=== PATIENT | female | born 1960 | race Caucasian/White ===

== ENCOUNTER 2018-04-22 05:59 | Inpatient (IN) | payer BC ==
[2018-04-22] MEDS ORDERED: ALBUMIN HUMAN 5% 250 ML INJ (07:00)
[2018-04-22] MEDS ORDERED: DEXAMETHASONE 4 MG/ML 1 ML INJ (07:00)
[2018-04-22] MEDS ORDERED: ALBUMIN HUMAN 25% 100 ML INJ (07:00)
[2018-04-22] MEDS ORDERED: ACETAMINOPHEN 1000 MG/100 ML IVPB (07:00)
[2018-04-22] MEDS ORDERED: LIDOCAINE 2% (SDV) 5 ML INJ (07:00)
[2018-04-22] MEDS ORDERED: ONDANSETRON 4 MG INJ (07:26)
[2018-04-22] MEDS ORDERED: FENTAnyl 50 MCG/ML VIAL (07:26)
[2018-04-22] MEDS ORDERED: PROPOFOL 20 ML (07:26)
[2018-04-22] MEDS ORDERED: MIDAZOLAM 1 MG/ML 2 ML INJ (07:26)
[2018-04-22] MEDS ORDERED: MIDAZOLAM 1 MG/ML 2 ML INJ IV (07:30)
[2018-04-22] MEDS ORDERED: EPHEDrine SULFATE 50 MG/5 ML SYG IV (07:30)
[2018-04-22] MEDS ORDERED: hydrALAzine 20 MG INJ IV ×2 (07:30→08:00)
[2018-04-22] MEDS ORDERED: FENTAnyl 50 MCG/ML VIAL IV ×4 (07:30→08:00)
[2018-04-22] MEDS ORDERED: LABETALOL HCL 20MG INJ IV ×2 (07:30→08:00)
[2018-04-22] MEDS ORDERED: ATROPINE 1 MG/10 ML SYRINGE IV (07:30)
[2018-04-22] MEDS ORDERED: MEPERIDINE 25 MG INJ IV ×2 (07:30→08:00)
[2018-04-22] MEDS ORDERED: DIPHENHYDRAMINE 50 MG INJ IV ×2 (07:30→08:00)
[2018-04-22] MEDS ORDERED: HYDROmorphONE 1 MG/5 ML IV SYRINGE IV ×3 (08:00)
[2018-04-22] MEDS ORDERED: HALOPERIDOL 5 MG INJ IV (08:00)
[2018-04-22] MEDS ORDERED: ONDANSETRON 4 MG INJ IV (08:00)
[2018-04-22] MEDS ORDERED: PROCHLORPERAZINE 10 MG INJ IV (08:00)
[2018-04-22] MEDS: GENTAMICIN 80 MG INJ (08:27)
[2018-04-22] MEDS: POLYMYXIN/BACITRACIN 1L IRRIG (08:27)
[2018-04-22] MEDS: BUPIVACAINE 0.25% (MPF) 30 ML INJ (08:28)
[2018-04-22] MEDS: LIDOCAINE 1%/EPI 30 ML INJ (08:28)
[2018-04-22] MEDS ORDERED: KETOROLAC 30 MG INJ (08:39)
[2018-04-22] MEDS ORDERED: GENTAMICIN 80 MG/NS (PMX) 100 ML (08:46)
[2018-04-22] MEDS ORDERED: HYDROmorphONE 2 MG/ML SYG (08:55)
[2018-04-22] MEDS ORDERED: hydrALAzine 20 MG INJ (09:02)
[2018-04-22] MEDS: MUPIROCIN 2% 15 GM CR (09:30)
[2018-04-22] MEDS ORDERED: BUPIVACAINE 0.25% (MPF) 30 ML INJ (09:56)
[2018-04-22] MEDS ORDERED: LIDOCAINE 1%/EPI 30 ML INJ (09:56)
[2018-04-22] MEDS: LEVALBUTEROL (NEB) 1.25 MG/0.5 ML AMP HHN (10:56)
[2018-04-22] MEDS: IPRATROPIUM (NEB) 0.5 MG/2.5 ML AMP HHN (10:59)
[2018-04-22] MEDS ORDERED: OXYCODONE/ACETAMINOPHEN (5/325) TAB PO (11:00)
[2018-04-22 13:05] LABS: AADO2 Arterial 21.7 mmHg (7.0-24.0); Allen Test ACCEPTAB; Arterial Base Excess -0.6 mmol/L (-3.0-3); Arterial Blood Gas Oxygen Sat 87.3 mmHG (95.0-98.0); Arterial COHb 1.5 % (0.0-3.0); Arterial Fraction of Oxyhgb 85.8 % (93.0-99.0); Arterial HCO3 27.1 mmol/L (22.0-26.0); Arterial MetHb 0.2 % (0.0-1.5); Arterial Total Hemglobin 15.3 g/dl (12.0-18.0); Arterial pCO2 56.8 mmhg (35-45); MODE ROOM AIR; Site Left Radial
[2018-04-22] MEDS: ALBUTEROL/IPRATROPIUM (NEB) 3 ML AMP HHN ×2 (14:20→20:00)
[2018-04-22] MEDS: ONDANSETRON 4 MG INJ IV (15:28)
[2018-04-22] MEDS ORDERED: ACETAMINOPHEN 325 MG TAB PO (15:30)
[2018-04-22] MEDS ORDERED: NACL 0.9% 3 ML SYG IV (15:30)
[2018-04-22 15:52] LABS: ADD MAN DIFF? NO
[2018-04-22 15:53] LABS: WHITE BLOOD COUNT 10.8 10^3/ul (4.8-10.8)
[2018-04-22 15:53] LABS: BASOPHILS % 0.1 % (0.0-2.0); EOSINOPHILS % 0.1 % (0.0-7.0); HEMATOCRIT 42.6 % (37.0-47.0); HEMOGLOBIN 14.2 g/dl (12.0-16.0); LYMPHOCYTES % 9.2 % (15.0-51.0); MEAN CORPUSCULAR HEMOGLOBIN 32.9 pg (29.0-33.0); MEAN CORPUSCULAR HGB CONC 33.3 g/dl (32.0-37.0); MEAN CORPUSCULAR VOLUME 98.8 fl (82.0-101.0); MEAN PLATELET VOLUME 9.9 fl (7.4-10.4); MONOCYTE # 0.3 10^3/ul (0.3-0.9); MONOCYTES % 3.1 % (0.0-11.0); NEUTROPHIL # 9.4 10^3/ul (1.6-7.5); NEUTROPHILS % 87.2 % (39.0-77.0); PLATELET COUNT 262 10^3/UL (140-415); RED BLOOD COUNT 4.31 10^6/ul (4.20-5.40); RED CELL DISTRIBUTION WIDTH 12.2 % (11.5-14.5)
[2018-04-22 16:12] LABS: INR 1.01; PROTIME 13.4 Sec (11.9-14.9)
[2018-04-22 16:32] LABS: PARTIAL THROMBOPLASTIN TIME 57.8 Sec (25.0-35.0)
[2018-04-22 16:35] LABS: ALBUMIN/GLOBULIN RATIO 1.22; ANION GAP 17 (8-16); BILIRUBIN,TOTAL 0.4 mg/dl (0.2-1.3)
[2018-04-22 16:42] LABS: ALANINE AMINOTRANSFERASE 222 IU/L (13-69); ALBUMIN 4.9 g/dl (3.3-4.9); ALKALINE PHOSPHATASE 74 IU/L (42-121); ASPARTATE AMINO TRANSFERASE 195 IU/L (15-46); BILIRUBIN,INDIRECT 0.4 mg/dl (0-1.1); BLOOD UREA NITROGEN 18 mg/dl (7-20); CALCIUM 11.6 mg/dl (8.4-10.2); CARBON DIOXIDE 25 mmol/L (21-31); CHLORIDE 101 mmol/L (97-110); CREATININE 0.87 mg/dl (0.44-1.00); GLUCOSE 222 mg/dl (70-220); POTASSIUM 4.4 mmol/L (3.5-5.1); SODIUM 139 mmol/L (135-144); TOTAL PROTEIN 8.9 g/dl (6.1-8.1)
[2018-04-22 16:55] LABS: B-TYPE NATRIURETIC PEPTIDE 91 PG/ML (0-125); TROPONIN-I < 0.012 ng/ml (0.000-0.120)
[2018-04-22] MEDS: METHYLPREDNISOLONE 125 MG INJ IV ×2 (17:00→20:30)
[2018-04-22] MEDS: CEFTRIAXONE 1 GM/50 ML (PMX) 50 ML IVPB (17:03)
[2018-04-22] MEDS: AZITHROMYCIN 500MG/NS (PMX) 250 ML IVPB (18:05)
[2018-04-22] MEDS: SOD CHLORIDE 0.9% 1,000 ML IV (18:05)
[2018-04-22] MEDS ORDERED: GLUCOSE GEL 15 GRAM TUBE PO ×2 (18:30)
[2018-04-22] MEDS ORDERED: DEXTROSE 50% 50 ML SYRINGE IV ×2 (18:30)
[2018-04-22] MEDS ORDERED: GLUCAGON 1 MG INJ IM (18:30)
[2018-04-22] MEDS ORDERED: GLUCOSE GEL 15 GRAM TUBE BUCCAL (18:30)
[2018-04-22] MEDS: BUDESONIDE (NEB) 0.5MG/2ML AMP HHN (20:00)
[2018-04-22] MEDS: INSULIN ASPART [NOVOLOG] 3 ML PEN SC (20:31)
[2018-04-22 23:09] LABS: TROPONIN-I < 0.012 ng/ml (0.000-0.120)
[2018-04-23] MEDS: METHYLPREDNISOLONE 125 MG INJ IV ×3 (02:03→17:12)
[2018-04-23] MEDS: ACCU-CHEK XX (02:03)
[2018-04-23 02:14] LABS: TROPONIN-I < 0.012 ng/ml (0.000-0.120)
[2018-04-23] MEDS: PANTOPRAZOLE 40 MG INJ IV (05:39)
[2018-04-23 06:21] LABS: ADD MAN DIFF? NO
[2018-04-23 06:43] LABS: BASOPHILS % 0.1 % (0.0-2.0); HEMATOCRIT 40.9 % (37.0-47.0); HEMOGLOBIN 13.7 g/dl (12.0-16.0); LYMPHOCYTES # 1.1 10^3/ul (0.8-2.9); LYMPHOCYTES % 7.6 % (15.0-51.0); MEAN CORPUSCULAR HEMOGLOBIN 32.8 pg (29.0-33.0); MEAN CORPUSCULAR HGB CONC 33.5 g/dl (32.0-37.0); MEAN CORPUSCULAR VOLUME 97.8 fl (82.0-101.0); MEAN PLATELET VOLUME 10.3 fl (7.4-10.4); MONOCYTE # 0.4 10^3/ul (0.3-0.9); MONOCYTES % 2.5 % (0.0-11.0); NEUTROPHIL # 13.5 10^3/ul (1.6-7.5); NEUTROPHILS % 89.3 % (39.0-77.0); PLATELET COUNT 255 10^3/UL (140-415); RED BLOOD COUNT 4.18 10^6/ul (4.20-5.40); RED CELL DISTRIBUTION WIDTH 11.8 % (11.5-14.5)
[2018-04-23 06:43] LABS: WHITE BLOOD COUNT 15.1 10^3/ul (4.8-10.8)
[2018-04-23 07:25] LABS: ALANINE AMINOTRANSFERASE 158 IU/L (13-69); ALBUMIN 4.1 g/dl (3.3-4.9); ALKALINE PHOSPHATASE 64 IU/L (42-121); ANION GAP 19 (8-16); ASPARTATE AMINO TRANSFERASE 96 IU/L (15-46); BILIRUBIN,INDIRECT 0.4 mg/dl (0-1.1); BILIRUBIN,TOTAL 0.4 mg/dl (0.2-1.3); BLOOD UREA NITROGEN 28 mg/dl (7-20); CALCIUM 10.1 mg/dl (8.4-10.2); CARBON DIOXIDE 23 mmol/L (21-31); CHLORIDE 98 mmol/L (97-110); CREATININE 0.93 mg/dl (0.44-1.00); GLUCOSE 277 mg/dl (70-220); MAGNESIUM 1.5 mg/dl (1.7-2.5); POTASSIUM 4.5 mmol/L (3.5-5.1); SODIUM 135 mmol/L (135-144); TOTAL PROTEIN 7.5 g/dl (6.1-8.1)
[2018-04-23 07:33] LABS: TROPONIN-I < 0.012 ng/ml (0.000-0.120)
[2018-04-23] MEDS: INSULIN ASPART [NOVOLOG] 3 ML PEN SC ×7 (08:17→22:24)
[2018-04-23 08:23] LABS: Arterial Base Excess -1.6 mmol/L (-3.0-3); Arterial Blood Gas Oxygen Sat 93.1 mmHG (95.0-98.0); Arterial COHb 1.1 % (0.0-3.0); Arterial Fraction of Oxyhgb 92.1 % (93.0-99.0); Arterial HCO3 23.5 mmol/L (22.0-26.0); Arterial MetHb 0 % (0.0-1.5); Arterial Total Hemglobin 14.7 g/dl (12.0-18.0); Arterial pCO2 41.3 mmhg (35-45); MODE NASAL CANNULA; Site Right Brachial
[2018-04-23] MEDS: BUPROPION (XL) 150 MG TAB PO (09:27)
[2018-04-23 10:38] LABS: HEMOGLOBIN A1C 7.8 % (0-5.9)
[2018-04-23] MEDS: MAGNESIUM SULFATE 2 GM/50 ML 50 ML IVPB (11:58)
[2018-04-23] MEDS: INSULIN GLARGINE [LANTus] (100 UNITS/ML) SYG SC (12:03)
[2018-04-23] MEDS: BUDESONIDE (NEB) 0.5MG/2ML AMP HHN ×2 (13:27→21:24)
[2018-04-23] MEDS: ALBUTEROL/IPRATROPIUM (NEB) 3 ML AMP HHN ×2 (13:27→21:14)
[2018-04-23] MEDS: DOXYCYCLINE 100 MG TAB PO ×2 (16:46→23:50)
[2018-04-23] MEDS: MAGNESIUM HYDROXIDE 30ML CUP PO (16:46)
[2018-04-23] MEDS ORDERED: CEFTRIAXONE 1 GM/50 ML (PMX) 50 ML IVPB (17:00)
[2018-04-23] MEDS: metFORMIN 500 MG TAB PO (17:11)
[2018-04-23] MEDS: OXYCODONE/ACETAMINOPHEN (5/325) TAB PO (19:33)
[2018-04-23] MEDS ORDERED: INSULIN GLARGINE [LANTus] (100 UNITS/ML) SYG SC (20:00)
[2018-04-24] MEDS: ACCU-CHEK XX ×2 (02:59)
[2018-04-24] MEDS: SOD CHLORIDE 0.9% 1,000 ML IV (03:28)
[2018-04-24] MEDS: OXYCODONE/ACETAMINOPHEN (5/325) TAB PO ×3 (03:47→20:45)
[2018-04-24] MEDS: BISACODYL (EC) 5 MG TAB PO ×2 (03:47→17:07)
[2018-04-24] MEDS: PANTOPRAZOLE 40 MG INJ IV (05:25)
[2018-04-24] MEDS: METHYLPREDNISOLONE 125 MG INJ IV (05:25)
[2018-04-24 06:20] LABS: ADD MAN DIFF? NO
[2018-04-24 06:28] LABS: BASOPHILS % 0.1 % (0.0-2.0); HEMATOCRIT 40.3 % (37.0-47.0); HEMOGLOBIN 13.5 g/dl (12.0-16.0); LYMPHOCYTES # 1.3 10^3/ul (0.8-2.9); LYMPHOCYTES % 8.3 % (15.0-51.0); MEAN CORPUSCULAR HEMOGLOBIN 32.8 pg (29.0-33.0); MEAN CORPUSCULAR HGB CONC 33.5 g/dl (32.0-37.0); MEAN CORPUSCULAR VOLUME 98.1 fl (82.0-101.0); MEAN PLATELET VOLUME 10.2 fl (7.4-10.4); MONOCYTE # 1.1 10^3/ul (0.3-0.9); MONOCYTES % 7.3 % (0.0-11.0); NEUTROPHILS % 83.5 % (39.0-77.0); PLATELET COUNT 251 10^3/UL (140-415); RED BLOOD COUNT 4.11 10^6/ul (4.20-5.40); RED CELL DISTRIBUTION WIDTH 11.9 % (11.5-14.5)
[2018-04-24 06:28] LABS: WHITE BLOOD COUNT 15.6 10^3/ul (4.8-10.8)
[2018-04-24 06:48] LABS: ANION GAP 14 (8-16); BLOOD UREA NITROGEN 35 mg/dl (7-20); CALCIUM 9.3 mg/dl (8.4-10.2); CARBON DIOXIDE 27 mmol/L (21-31); CHLORIDE 99 mmol/L (97-110); CREATININE 0.81 mg/dl (0.44-1.00); GLUCOSE 248 mg/dl (70-220); MAGNESIUM 2.4 mg/dl (1.7-2.5); PHOSPHORUS 3.5 mg/dl (2.5-4.9); POTASSIUM 4.9 mmol/L (3.5-5.1); SODIUM 135 mmol/L (135-144)
[2018-04-24] MEDS: metFORMIN 500 MG TAB PO ×2 (08:06→17:35)
[2018-04-24] MEDS: INSULIN ASPART [NOVOLOG] 3 ML PEN SC ×8 (08:12→22:06)
[2018-04-24] MEDS: INSULIN GLARGINE [LANTus] (100 UNITS/ML) SYG SC ×2 (08:13→22:11)
[2018-04-24] MEDS: BUPROPION (XL) 150 MG TAB PO (08:16)
[2018-04-24] MEDS: DOXYCYCLINE 100 MG TAB PO ×2 (08:16→20:45)
[2018-04-24] MEDS: ALBUTEROL/IPRATROPIUM (NEB) 3 ML AMP HHN ×2 (08:51→16:41)
[2018-04-24] MEDS: BUDESONIDE (NEB) 0.5MG/2ML AMP HHN (08:51)
[2018-04-24] MEDS: FLUTICASONE/VILANTEROL 100-25 INH (13:18)
[2018-04-24] MEDS: predniSONE 20 MG TAB PO (13:18)
[2018-04-24] MEDS: TIOTROPIUM 18 MCG CAPSULE INHA DEV INH (13:18)
[2018-04-24] MEDS: MINERAL OIL 133 ML ENEMA PR (17:03)
[2018-04-24] MEDS: DOCUSATE SODIUM 100 MG CAP PO (17:07)
[2018-04-25] MEDS: ACCU-CHEK XX ×2 (02:00)
[2018-04-25 06:12] LABS: ADD MAN DIFF? NO
[2018-04-25 06:17] LABS: BASOPHILS % 0.1 % (0.0-2.0); EOSINOPHILS % 0.1 % (0.0-7.0); HEMATOCRIT 39.3 % (37.0-47.0); HEMOGLOBIN 13.2 g/dl (12.0-16.0); LYMPHOCYTES # 2.1 10^3/ul (0.8-2.9); LYMPHOCYTES % 15.4 % (15.0-51.0); MEAN CORPUSCULAR HEMOGLOBIN 33.3 pg (29.0-33.0); MEAN CORPUSCULAR HGB CONC 33.6 g/dl (32.0-37.0); MEAN CORPUSCULAR VOLUME 99.2 fl (82.0-101.0); MONOCYTE # 1.3 10^3/ul (0.3-0.9); MONOCYTES % 9.2 % (0.0-11.0); NEUTROPHIL # 10.2 10^3/ul (1.6-7.5); NEUTROPHILS % 74.8 % (39.0-77.0); PLATELET COUNT 248 10^3/UL (140-415); RED BLOOD COUNT 3.96 10^6/ul (4.20-5.40); RED CELL DISTRIBUTION WIDTH 11.9 % (11.5-14.5)
[2018-04-25 06:17] LABS: WHITE BLOOD COUNT 13.7 10^3/ul (4.8-10.8)
[2018-04-25 07:21] LABS: ANION GAP 18 (8-16); BLOOD UREA NITROGEN 41 mg/dl (7-20); CALCIUM 9.4 mg/dl (8.4-10.2); CARBON DIOXIDE 27 mmol/L (21-31); CHLORIDE 101 mmol/L (97-110); CREATININE 0.89 mg/dl (0.44-1.00); GLUCOSE 135 mg/dl (70-220); POTASSIUM 4.6 mmol/L (3.5-5.1); SODIUM 141 mmol/L (135-144)
[2018-04-25] MEDS: metFORMIN 500 MG TAB PO ×2 (07:33→18:03)
[2018-04-25] MEDS: INSULIN ASPART [NOVOLOG] 3 ML PEN SC ×5 (07:34→21:00)
[2018-04-25] MEDS: INSULIN GLARGINE [LANTus] (100 UNITS/ML) SYG SC (07:43)
[2018-04-25] MEDS: FLUTICASONE/VILANTEROL 100-25 INH (09:03)
[2018-04-25] MEDS: BUPROPION (XL) 150 MG TAB PO (09:04)
[2018-04-25] MEDS: predniSONE 10 MG TAB PO (09:04)
[2018-04-25] MEDS: DOXYCYCLINE 100 MG TAB PO ×2 (09:04→20:55)
[2018-04-25] MEDS: TIOTROPIUM 18 MCG CAPSULE INHA DEV INH (09:04)
[2018-04-25] MEDS: ALBUTEROL/IPRATROPIUM (NEB) 3 ML AMP HHN (09:42)
[2018-04-25] MEDS ORDERED: LINAGLIPTIN 5 MG TABLET PO (10:30)
[2018-04-25] MEDS: OXYCODONE/ACETAMINOPHEN (5/325) TAB PO (11:41)
[2018-04-25] MEDS: REPAGLINIDE 1 MG TAB PO (11:49)
[2018-04-25] MEDS: ONDANSETRON 4 MG INJ IV (21:01)
[2018-04-26] MEDS: OXYCODONE/ACETAMINOPHEN (5/325) TAB PO (01:00)
[2018-04-26] MEDS: ACCU-CHEK XX ×4 (02:00→21:00)
[2018-04-26] MEDS: INSULIN ASPART [NOVOLOG] 3 ML PEN SC ×4 (07:55→21:00)
[2018-04-26] MEDS: FLUTICASONE/VILANTEROL 100-25 INH (08:29)
[2018-04-26] MEDS: TIOTROPIUM 18 MCG CAPSULE INHA DEV INH (08:29)
[2018-04-26] MEDS: DOXYCYCLINE 100 MG TAB PO ×2 (08:30→20:49)
[2018-04-26] MEDS: BUPROPION (XL) 150 MG TAB PO (08:30)
[2018-04-26] MEDS: predniSONE 20 MG TAB PO (08:30)
[2018-04-26] MEDS: metFORMIN 500 MG TAB PO (08:31)
[2018-04-26] MEDS: BUDESONIDE (NEB) 0.5MG/2ML AMP HHN ×2 (09:30→20:00)
[2018-04-26 12:54] LABS: ADD MAN DIFF? NO
[2018-04-26 12:56] LABS: WHITE BLOOD COUNT 11.6 10^3/ul (4.8-10.8)
[2018-04-26 12:57] LABS: BASOPHILS % 0.1 % (0.0-2.0); EOSINOPHILS # 0.1 10^3/ul (0.0-0.5); EOSINOPHILS % 0.4 % (0.0-7.0); HEMOGLOBIN 14.2 g/dl (12.0-16.0); LYMPHOCYTES # 1.4 10^3/ul (0.8-2.9); LYMPHOCYTES % 12.2 % (15.0-51.0); MEAN CORPUSCULAR HEMOGLOBIN 32.6 pg (29.0-33.0); MEAN CORPUSCULAR VOLUME 98.9 fl (82.0-101.0); MEAN PLATELET VOLUME 9.9 fl (7.4-10.4); MONOCYTE # 0.9 10^3/ul (0.3-0.9); MONOCYTES % 7.7 % (0.0-11.0); NEUTROPHIL # 9.2 10^3/ul (1.6-7.5); NEUTROPHILS % 79.2 % (39.0-77.0); PLATELET COUNT 247 10^3/UL (140-415); RED BLOOD COUNT 4.35 10^6/ul (4.20-5.40); RED CELL DISTRIBUTION WIDTH 11.9 % (11.5-14.5)
[2018-04-26] MEDS: REPAGLINIDE 1 MG TAB PO ×2 (12:57→17:52)
[2018-04-26 13:19] LABS: CHOLESTEROL 181 mg/dl (100-200)
[2018-04-26 13:19] LABS: ANION GAP 17 (8-16); BLOOD UREA NITROGEN 29 mg/dl (7-20); CALCIUM 9.5 mg/dl (8.4-10.2); CARBON DIOXIDE 25 mmol/L (21-31); CHLORIDE 103 mmol/L (97-110); CHOL/HDL RATIO 3.2 RATIO; CREATININE 0.77 mg/dl (0.44-1.00); GLUCOSE 156 mg/dl (70-220); HDL CHOLESTEROL 55 mg/dl (37-92); LDL CHOLESTEROL,CALCULATED 72 mg/dl; MAGNESIUM 1.7 mg/dl (1.7-2.5); PHOSPHORUS 3.8 mg/dl (2.5-4.9); POTASSIUM 4.3 mmol/L (3.5-5.1); SODIUM 141 mmol/L (135-144); TRIGLYCERIDES 272 mg/dl (0-149)
[2018-04-26] MEDS: ALBUTEROL/IPRATROPIUM (NEB) 3 ML AMP HHN ×2 (13:46→20:00)
[2018-04-27] MEDS: ACCU-CHEK XX ×5 (02:00→20:29)
[2018-04-27 06:55] LABS: ADD MAN DIFF? NO
[2018-04-27 07:03] LABS: WHITE BLOOD COUNT 12.6 10^3/ul (4.8-10.8)
[2018-04-27 07:03] LABS: BASOPHILS % 0.2 % (0.0-2.0); EOSINOPHILS # 0.2 10^3/ul (0.0-0.5); EOSINOPHILS % 1.7 % (0.0-7.0); HEMATOCRIT 43.3 % (37.0-47.0); HEMOGLOBIN 14.6 g/dl (12.0-16.0); LYMPHOCYTES # 3.2 10^3/ul (0.8-2.9); LYMPHOCYTES % 25.1 % (15.0-51.0); MEAN CORPUSCULAR HEMOGLOBIN 32.4 pg (29.0-33.0); MEAN CORPUSCULAR HGB CONC 33.7 g/dl (32.0-37.0); MEAN CORPUSCULAR VOLUME 96.2 fl (82.0-101.0); MEAN PLATELET VOLUME 9.8 fl (7.4-10.4); MONOCYTE # 0.9 10^3/ul (0.3-0.9); MONOCYTES % 6.9 % (0.0-11.0); NEUTROPHIL # 8.3 10^3/ul (1.6-7.5); NEUTROPHILS % 65.6 % (39.0-77.0); PLATELET COUNT 294 10^3/UL (140-415); RED CELL DISTRIBUTION WIDTH 11.9 % (11.5-14.5)
[2018-04-27 07:46] LABS: ANION GAP 15 (8-16); BLOOD UREA NITROGEN 26 mg/dl (7-20); CALCIUM 9.7 mg/dl (8.4-10.2); CARBON DIOXIDE 29 mmol/L (21-31); CHLORIDE 103 mmol/L (97-110); CREATININE 0.74 mg/dl (0.44-1.00); GLUCOSE 94 mg/dl (70-220); MAGNESIUM 1.6 mg/dl (1.7-2.5); PHOSPHORUS 4.6 mg/dl (2.5-4.9); SODIUM 143 mmol/L (135-144)
[2018-04-27] MEDS: ALBUTEROL/IPRATROPIUM (NEB) 3 ML AMP HHN ×3 (08:58→22:17)
[2018-04-27] MEDS: BUDESONIDE (NEB) 0.5MG/2ML AMP HHN ×2 (09:07→22:17)
[2018-04-27] MEDS: BUPROPION (XL) 150 MG TAB PO (09:16)
[2018-04-27] MEDS: DOXYCYCLINE 100 MG TAB PO ×2 (09:16→20:28)
[2018-04-27] MEDS: predniSONE 20 MG TAB PO (09:16)
[2018-04-27] MEDS: REPAGLINIDE 1 MG TAB PO ×3 (09:16→17:41)
[2018-04-27] MEDS: INSULIN ASPART [NOVOLOG] 3 ML PEN SC ×4 (09:30→20:28)
[2018-04-27] MEDS: ONDANSETRON 4 MG INJ IV (09:32)
[2018-04-27] MEDS: MAGNESIUM OXIDE 400 MG TAB PO (20:28)
[2018-04-28] MEDS: traZODone 50 MG TAB PO (00:37)
[2018-04-28] MEDS: ACCU-CHEK XX ×5 (02:00→21:00)
[2018-04-28] MEDS: INSULIN ASPART [NOVOLOG] 3 ML PEN SC ×4 (07:55→20:56)
[2018-04-28] MEDS: ALBUTEROL/IPRATROPIUM (NEB) 3 ML AMP HHN ×4 (08:00→23:37)
[2018-04-28] MEDS: BUDESONIDE (NEB) 0.5MG/2ML AMP HHN ×3 (09:00→21:29)
[2018-04-28] MEDS: predniSONE 20 MG TAB PO (11:03)
[2018-04-28] MEDS: MAGNESIUM OXIDE 400 MG TAB PO ×2 (11:03→20:54)
[2018-04-28] MEDS: REPAGLINIDE 1 MG TAB PO ×3 (11:03→17:35)
[2018-04-28] MEDS: DOXYCYCLINE 100 MG TAB PO ×2 (11:03→20:54)
[2018-04-28] MEDS: BUPROPION (XL) 150 MG TAB PO (11:04)
[2018-04-28] MEDS ORDERED: SALINE 0.65% 45 ML NAS SPRAY NASAL (15:30)
[2018-04-28] MEDS: OXYCODONE/ACETAMINOPHEN (5/325) TAB PO (17:36)
[2018-04-29] MEDS: ACCU-CHEK XX ×5 (01:46→20:26)
[2018-04-29] MEDS: OXYCODONE/ACETAMINOPHEN (5/325) TAB PO ×2 (01:54→12:14)
[2018-04-29 06:02] LABS: ADD MAN DIFF? NO
[2018-04-29 06:13] LABS: WHITE BLOOD COUNT 15.2 10^3/ul (4.8-10.8)
[2018-04-29 06:13] LABS: BASOPHILS % 0.2 % (0.0-2.0); EOSINOPHILS # 0.3 10^3/ul (0.0-0.5); EOSINOPHILS % 1.6 % (0.0-7.0); HEMATOCRIT 41.9 % (37.0-47.0); HEMOGLOBIN 14.2 g/dl (12.0-16.0); LYMPHOCYTES # 3.4 10^3/ul (0.8-2.9); LYMPHOCYTES % 22.2 % (15.0-51.0); MEAN CORPUSCULAR HEMOGLOBIN 32.9 pg (29.0-33.0); MEAN CORPUSCULAR HGB CONC 33.9 g/dl (32.0-37.0); MEAN CORPUSCULAR VOLUME 97.2 fl (82.0-101.0); MEAN PLATELET VOLUME 9.6 fl (7.4-10.4); MONOCYTES % 6.4 % (0.0-11.0); NEUTROPHIL # 10.5 10^3/ul (1.6-7.5); NEUTROPHILS % 69.2 % (39.0-77.0); PLATELET COUNT 329 10^3/UL (140-415); RED BLOOD COUNT 4.31 10^6/ul (4.20-5.40); RED CELL DISTRIBUTION WIDTH 11.9 % (11.5-14.5)
[2018-04-29] MEDS: INSULIN ASPART [NOVOLOG] 3 ML PEN SC ×4 (07:55→20:26)
[2018-04-29] MEDS: ALBUTEROL/IPRATROPIUM (NEB) 3 ML AMP HHN ×3 (08:00→19:50)
[2018-04-29] MEDS: REPAGLINIDE 1 MG TAB PO ×3 (08:40→17:30)
[2018-04-29] MEDS: predniSONE 10 MG TAB PO (08:41)
[2018-04-29] MEDS: BUPROPION (XL) 150 MG TAB PO (08:41)
[2018-04-29] MEDS: MAGNESIUM OXIDE 400 MG TAB PO ×2 (08:41→20:04)
[2018-04-29] MEDS: DOXYCYCLINE 100 MG TAB PO ×2 (08:41→20:04)
[2018-04-29] MEDS: BUDESONIDE (NEB) 0.5MG/2ML AMP HHN ×2 (08:54→19:50)
[2018-04-29] MEDS: traZODone 50 MG TAB PO (20:04)
[2018-04-30] MEDS: ACCU-CHEK XX ×5 (01:22→21:20)
[2018-04-30 06:48] LABS: ADD MAN DIFF? NO
[2018-04-30 06:58] LABS: BASOPHILS % 0.4 % (0.0-2.0); EOSINOPHILS # 0.3 10^3/ul (0.0-0.5); EOSINOPHILS % 2.7 % (0.0-7.0); HEMATOCRIT 41.7 % (37.0-47.0); HEMOGLOBIN 14.1 g/dl (12.0-16.0); LYMPHOCYTES # 3.8 10^3/ul (0.8-2.9); LYMPHOCYTES % 34.7 % (15.0-51.0); MEAN CORPUSCULAR HEMOGLOBIN 32.9 pg (29.0-33.0); MEAN CORPUSCULAR HGB CONC 33.8 g/dl (32.0-37.0); MEAN CORPUSCULAR VOLUME 97.4 fl (82.0-101.0); MEAN PLATELET VOLUME 9.5 fl (7.4-10.4); MONOCYTE # 0.7 10^3/ul (0.3-0.9); MONOCYTES % 6.4 % (0.0-11.0); NEUTROPHILS % 55.2 % (39.0-77.0); PLATELET COUNT 329 10^3/UL (140-415); RED BLOOD COUNT 4.28 10^6/ul (4.20-5.40); RED CELL DISTRIBUTION WIDTH 11.9 % (11.5-14.5)
[2018-04-30 06:58] LABS: WHITE BLOOD COUNT 10.9 10^3/ul (4.8-10.8)
[2018-04-30] MEDS: BUDESONIDE (NEB) 0.5MG/2ML AMP HHN ×2 (08:17→20:04)
[2018-04-30] MEDS: ALBUTEROL/IPRATROPIUM (NEB) 3 ML AMP HHN ×3 (08:17→20:04)
[2018-04-30] MEDS: predniSONE 10 MG TAB PO (08:35)
[2018-04-30] MEDS: REPAGLINIDE 1 MG TAB PO ×3 (08:35→17:51)
[2018-04-30] MEDS: BUPROPION (XL) 150 MG TAB PO (08:35)
[2018-04-30] MEDS: MAGNESIUM OXIDE 400 MG TAB PO ×2 (08:35→20:58)
[2018-04-30] MEDS: DOXYCYCLINE 100 MG TAB PO ×2 (08:35→20:58)
[2018-04-30] MEDS: INSULIN ASPART [NOVOLOG] 3 ML PEN SC ×5 (08:52→21:00)
[2018-04-30 11:22] LABS: AADO2 Arterial 44.3 mmHg (7.0-24.0); Arterial Base Excess 1.5 mmol/L (-3.0-3); Arterial Blood Gas Oxygen Sat 90.6 mmHG (95.0-98.0); Arterial COHb 0.8 % (0.0-3.0); Arterial Fraction of Oxyhgb 89.7 % (93.0-99.0); Arterial HCO3 25.5 mmol/L (22.0-26.0); Arterial MetHb 0.2 % (0.0-1.5); Arterial Total Hemglobin 15.5 g/dl (12.0-18.0); Arterial pCO2 38.4 mmhg (35-45); MODE ROOM AIR; Site Right Brachial
[2018-04-30] MEDS: traZODone 50 MG TAB PO (20:58)
[2018-04-30] MEDS: OXYCODONE/ACETAMINOPHEN (5/325) TAB PO (20:59)
[2018-05-01] MEDS: ACCU-CHEK XX ×5 (01:37→21:00)
[2018-05-01] MEDS: INSULIN ASPART [NOVOLOG] 3 ML PEN SC ×4 (07:55→22:29)
[2018-05-01] MEDS: ALBUTEROL/IPRATROPIUM (NEB) 3 ML AMP HHN ×3 (08:50→19:56)
[2018-05-01] MEDS: BUDESONIDE (NEB) 0.5MG/2ML AMP HHN ×2 (08:50→19:56)
[2018-05-01 09:35] LABS: ADD MAN DIFF? NO
[2018-05-01 09:38] LABS: BASOPHILS % 0.4 % (0.0-2.0); EOSINOPHILS # 0.3 10^3/ul (0.0-0.5); EOSINOPHILS % 2.3 % (0.0-7.0); HEMATOCRIT 42.1 % (37.0-47.0); HEMOGLOBIN 13.9 g/dl (12.0-16.0); LYMPHOCYTES # 3.9 10^3/ul (0.8-2.9); LYMPHOCYTES % 34.3 % (15.0-51.0); MEAN CORPUSCULAR HEMOGLOBIN 32.4 pg (29.0-33.0); MEAN CORPUSCULAR VOLUME 98.1 fl (82.0-101.0); MEAN PLATELET VOLUME 9.5 fl (7.4-10.4); MONOCYTE # 0.8 10^3/ul (0.3-0.9); MONOCYTES % 6.9 % (0.0-11.0); NEUTROPHIL # 6.2 10^3/ul (1.6-7.5); NEUTROPHILS % 55.4 % (39.0-77.0); PLATELET COUNT 344 10^3/UL (140-415); RED BLOOD COUNT 4.29 10^6/ul (4.20-5.40); RED CELL DISTRIBUTION WIDTH 12.1 % (11.5-14.5)
[2018-05-01 09:38] LABS: WHITE BLOOD COUNT 11.2 10^3/ul (4.8-10.8)
[2018-05-01] MEDS: predniSONE 10 MG TAB PO (09:38)
[2018-05-01] MEDS: REPAGLINIDE 1 MG TAB PO ×3 (09:38→17:29)
[2018-05-01] MEDS: DOXYCYCLINE 100 MG TAB PO ×2 (09:38→22:27)
[2018-05-01] MEDS: MAGNESIUM OXIDE 400 MG TAB PO ×2 (09:38→22:26)
[2018-05-01] MEDS: BUPROPION (XL) 150 MG TAB PO (09:38)
[2018-05-01] MEDS: traZODone 50 MG TAB PO (22:26)
[2018-05-02] MEDS: ACCU-CHEK XX ×5 (02:00→21:00)
[2018-05-02] MEDS: INSULIN ASPART [NOVOLOG] 3 ML PEN SC ×4 (07:55→21:07)
[2018-05-02] MEDS: ALBUTEROL/IPRATROPIUM (NEB) 3 ML AMP HHN ×3 (08:32→20:32)
[2018-05-02] MEDS: BUDESONIDE (NEB) 0.5MG/2ML AMP HHN ×2 (08:32→20:38)
[2018-05-02] MEDS: predniSONE 10 MG TAB PO (10:10)
[2018-05-02] MEDS: BUPROPION (XL) 150 MG TAB PO (10:10)
[2018-05-02] MEDS: MAGNESIUM OXIDE 400 MG TAB PO ×2 (10:10→21:00)
[2018-05-02] MEDS: REPAGLINIDE 1 MG TAB PO ×3 (10:10→16:58)
[2018-05-02] MEDS: FUROSEMIDE 40 MG TAB PO (16:12)
[2018-05-02] MEDS: FLUTICASONE/VILANTEROL 100-25 INH (16:58)
[2018-05-02] MEDS: traZODone 50 MG TAB PO (21:00)
[2018-05-03] MEDS: ACCU-CHEK XX ×3 (02:00→12:16)
[2018-05-03 07:16] LABS: ADD MAN DIFF? NO
[2018-05-03 07:24] LABS: BASOPHIL # 0.1 10^3/ul (0.0-0.1); BASOPHILS % 0.4 % (0.0-2.0); EOSINOPHILS # 0.2 10^3/ul (0.0-0.5); EOSINOPHILS % 1.6 % (0.0-7.0); HEMATOCRIT 44.1 % (37.0-47.0); HEMOGLOBIN 14.7 g/dl (12.0-16.0); LYMPHOCYTES % 28.5 % (15.0-51.0); MEAN CORPUSCULAR HEMOGLOBIN 32.9 pg (29.0-33.0); MEAN CORPUSCULAR HGB CONC 33.3 g/dl (32.0-37.0); MEAN CORPUSCULAR VOLUME 98.7 fl (82.0-101.0); MEAN PLATELET VOLUME 9.7 fl (7.4-10.4); MONOCYTE # 0.8 10^3/ul (0.3-0.9); MONOCYTES % 5.9 % (0.0-11.0); NEUTROPHIL # 8.8 10^3/ul (1.6-7.5); NEUTROPHILS % 63.1 % (39.0-77.0); PLATELET COUNT 362 10^3/UL (140-415); RED BLOOD COUNT 4.47 10^6/ul (4.20-5.40); RED CELL DISTRIBUTION WIDTH 11.9 % (11.5-14.5)
[2018-05-03 07:47] LABS: ANION GAP 14 (8-16); BLOOD UREA NITROGEN 18 mg/dl (7-20); CALCIUM 9.7 mg/dl (8.4-10.2); CARBON DIOXIDE 28 mmol/L (21-31); CHLORIDE 103 mmol/L (97-110); CREATININE 0.73 mg/dl (0.44-1.00); GLUCOSE 185 mg/dl (70-220); MAGNESIUM 1.9 mg/dl (1.7-2.5); PHOSPHORUS 4.1 mg/dl (2.5-4.9); POTASSIUM 3.7 mmol/L (3.5-5.1); SODIUM 141 mmol/L (135-144)
[2018-05-03] MEDS: INSULIN ASPART [NOVOLOG] 3 ML PEN SC ×2 (07:55→12:20)
[2018-05-03] MEDS: BUPROPION (XL) 150 MG TAB PO (08:28)
[2018-05-03] MEDS: MAGNESIUM OXIDE 400 MG TAB PO (08:28)
[2018-05-03] MEDS: predniSONE 5 MG TAB PO (08:28)
[2018-05-03] MEDS: REPAGLINIDE 1 MG TAB PO ×2 (08:28→12:17)
[2018-05-03] MEDS: FLUTICASONE/VILANTEROL 100-25 INH (08:29)
[2018-05-03] MEDS: FUROSEMIDE 40 MG TAB PO (08:29)
[2018-05-03] MEDS: ALBUTEROL/IPRATROPIUM (NEB) 3 ML AMP HHN ×2 (08:42→12:19)
[2018-05-03] MEDS: BUDESONIDE (NEB) 0.5MG/2ML AMP HHN (08:42)
== END 2018-05-03 12:56 | disposition home or self-care (01) | DRG 982 ==
LOC: SDS 05:59 → TEL 04-23 19:24 → SDS 13:55 → REC 16:10 → TEL 04-23 19:24 → REC 13:55 → TEL 16:10
PROC: 0HRT0JZ Replacement of Right Breast with Synthetic Substitute, Open Approach (ICD-10-PCS; principal; 2018-04-22 07:30)
PROC: 0HPT0JZ Removal of Synthetic Substitute from Right Breast, Open Approach (ICD-10-PCS; 2018-04-22 07:30)
DX: J96.01 Acute respiratory failure with hypoxia (principal); E87.2 Acidosis; J44.1 Chronic obstructive pulmonary disease with (acute) exacerbation; T85.49XA Other mechanical complication of breast prosthesis and implant, initial encounter; T85.44XA Capsular contracture of breast implant, initial encounter; J38.00 Paralysis of vocal cords and larynx, unspecified; E11.9 Type 2 diabetes mellitus without complications; F39 Unspecified mood [affective] disorder; F17.200 Nicotine dependence, unspecified, uncomplicated; I10 Essential (primary) hypertension; Q83.9 Congenital malformation of breast, unspecified; R60.0 Localized edema
CPT/HCPCS: 36600; 71045; 71250; 76705; 80048; 80053; 80061; 82803; 82962; 83036; 83735; 83880; 84100; 84443; 84484; 85025; 85610; 85730; 88300; 88307; 93005; 93306; 94640; 97110; 97116; 97161; 97530; G0378

== ENCOUNTER 2018-08-09 21:05 | Observation (INO) | payer BC ==
[2018-08-09] MEDS: ASPIRIN 81 MG TAB PO (21:54)
[2018-08-09 22:05] LABS: ADD MAN DIFF? NO
[2018-08-09] MEDS: ONDANSETRON 4 MG INJ IV (22:07)
[2018-08-09] MEDS: FUROSEMIDE 40 MG INJ IV (22:07)
[2018-08-09] MEDS: morphine 4 MG/ML VIAL IV (22:07)
[2018-08-09 22:11] LABS: WHITE BLOOD COUNT 9.3 10^3/ul (4.8-10.8)
[2018-08-09 22:11] LABS: BASOPHILS % 0.3 % (0.0-2.0); EOSINOPHILS # 0.2 10^3/ul (0.0-0.5); EOSINOPHILS % 1.9 % (0.0-7.0); HEMATOCRIT 43.9 % (37.0-47.0); HEMOGLOBIN 14.9 g/dl (12.0-16.0); LYMPHOCYTES # 2.2 10^3/ul (0.8-2.9); LYMPHOCYTES % 23.2 % (15.0-51.0); MEAN CORPUSCULAR HEMOGLOBIN 32.6 pg (29.0-33.0); MEAN CORPUSCULAR HGB CONC 33.9 g/dl (32.0-37.0); MEAN CORPUSCULAR VOLUME 96.1 fl (82.0-101.0); MEAN PLATELET VOLUME 9.9 fl (7.4-10.4); MONOCYTE # 0.7 10^3/ul (0.3-0.9); MONOCYTES % 7.8 % (0.0-11.0); NEUTROPHIL # 6.2 10^3/ul (1.6-7.5); NEUTROPHILS % 66.5 % (39.0-77.0); PLATELET COUNT 292 10^3/UL (140-415); RED BLOOD COUNT 4.57 10^6/ul (4.20-5.40); RED CELL DISTRIBUTION WIDTH 11.9 % (11.5-14.5)
[2018-08-09 22:29] LABS: BLOOD UREA NITROGEN 13 mg/dl (7-20); CALCIUM 10.2 mg/dl (8.4-10.2); CARBON DIOXIDE 29 mmol/L (21-31); CREATININE 0.62 mg/dl (0.44-1.00); Estimated GFR > 60 mL/min (>60); GLUCOSE 153 mg/dl (70-220); POTASSIUM 3.8 mmol/L (3.5-5.1)
[2018-08-09 22:31] LABS: ANION GAP 11 (5-13); CHLORIDE 100 mmol/L (97-110); SODIUM 140 mmol/L (135-144)
[2018-08-09 22:41] LABS: B-TYPE NATRIURETIC PEPTIDE 30 PG/ML (0-125); TROPONIN-I < 0.012 ng/ml (0.000-0.120)
[2018-08-10] MEDS ORDERED: ACETAMINOPHEN 325 MG TAB PO ×2 (00:30→02:00)
[2018-08-10] MEDS ORDERED: ONDANSETRON 4 MG INJ IV ×2 (00:30→02:00)
[2018-08-10] MEDS ORDERED: NACL 0.9% 3 ML SYG IV (02:00)
[2018-08-10] MEDS ORDERED: DOCUSATE SODIUM 100 MG CAP PO (02:00)
[2018-08-10] MEDS ORDERED: NITROGLYCERIN (SL) 0.4 MG TAB SL (02:00)
[2018-08-10] MEDS ORDERED: BISACODYL (EC) 5 MG TAB PO (02:00)
[2018-08-10 02:20] LABS: D-DIMER 769.69 ng/ml (<460)
[2018-08-10] MEDS: morphine 2 MG INJ IV ×4 (02:28→22:27)
[2018-08-10] MEDS ORDERED: GLUCOSE GEL 15 GRAM TUBE PO ×2 (02:30)
[2018-08-10] MEDS ORDERED: DEXTROSE 50% 50 ML SYRINGE IV ×2 (02:30)
[2018-08-10] MEDS ORDERED: GLUCOSE GEL 15 GRAM TUBE BUCCAL (02:30)
[2018-08-10] MEDS ORDERED: GLUCAGON 1 MG INJ IM (02:30)
[2018-08-10] MEDS: LORAZEPAM 2 MG INJ IV (04:16)
[2018-08-10] MEDS: SOD CHLORIDE 0.9% 100 ML (04:22)
[2018-08-10] MEDS: IOHEXOL 100 ML (04:23)
[2018-08-10] MEDS: LEVALBUTEROL (NEB) 1.25 MG/0.5 ML AMP HHN (05:09)
[2018-08-10] MEDS: predniSONE 20 MG TAB PO ×2 (05:30→09:27)
[2018-08-10 05:47] LABS: ADD MAN DIFF? NO
[2018-08-10 05:54] LABS: WHITE BLOOD COUNT 9.4 10^3/ul (4.8-10.8)
[2018-08-10 05:54] LABS: BASOPHILS % 0.4 % (0.0-2.0); EOSINOPHILS # 0.3 10^3/ul (0.0-0.5); HEMATOCRIT 40.8 % (37.0-47.0); HEMOGLOBIN 13.7 g/dl (12.0-16.0); LYMPHOCYTES # 2.3 10^3/ul (0.8-2.9); LYMPHOCYTES % 24.6 % (15.0-51.0); MEAN CORPUSCULAR HEMOGLOBIN 32.9 pg (29.0-33.0); MEAN CORPUSCULAR HGB CONC 33.6 g/dl (32.0-37.0); MEAN CORPUSCULAR VOLUME 98.1 fl (82.0-101.0); MONOCYTE # 0.8 10^3/ul (0.3-0.9); MONOCYTES % 8.7 % (0.0-11.0); NEUTROPHIL # 5.9 10^3/ul (1.6-7.5); NEUTROPHILS % 62.9 % (39.0-77.0); PLATELET COUNT 283 10^3/UL (140-415); RED BLOOD COUNT 4.16 10^6/ul (4.20-5.40); RED CELL DISTRIBUTION WIDTH 11.9 % (11.5-14.5)
[2018-08-10 06:09] LABS: CREATINE KINASE 112 IU/L (23-200)
[2018-08-10 06:16] LABS: CK INDEX 0.9; CK-MB 0.99 ng/ml (0.0-2.4); TROPONIN-I < 0.012 ng/ml (0.000-0.120)
[2018-08-10 06:21] LABS: ALANINE AMINOTRANSFERASE 145 IU/L (13-69); ALBUMIN 3.8 g/dl (3.3-4.9); ALBUMIN/GLOBULIN RATIO 1.18; ALKALINE PHOSPHATASE 91 IU/L (42-121); ANION GAP 12 (5-13); ASPARTATE AMINO TRANSFERASE 94 IU/L (15-46); BILIRUBIN,INDIRECT 0.5 mg/dl (0-1.1); BILIRUBIN,TOTAL 0.5 mg/dl (0.2-1.3); BLOOD UREA NITROGEN 14 mg/dl (7-20); CALCIUM 9.4 mg/dl (8.4-10.2); CARBON DIOXIDE 26 mmol/L (21-31); CHLORIDE 100 mmol/L (97-110); CHOL/HDL RATIO 4.9 RATIO; CHOLESTEROL 197 mg/dl (100-200); CREATININE 0.62 mg/dl (0.44-1.00); Estimated GFR > 60 mL/min (>60); GLUCOSE 150 mg/dl (70-220); HDL CHOLESTEROL 40 mg/dl (37-92); LDL CHOLESTEROL,CALCULATED 110 mg/dl; MAGNESIUM 1.5 mg/dl (1.7-2.5); POTASSIUM 3.7 mmol/L (3.5-5.1); SODIUM 138 mmol/L (135-144); TRIGLYCERIDES 233 mg/dl (0-149)
[2018-08-10 07:10] LABS: ETHANOL < 10.0 mg/dl (0-0)
[2018-08-10 07:52] LABS: HEMOGLOBIN A1C 6.2 % (0-5.9)
[2018-08-10] MEDS: FLUTICASONE/VILANTEROL 100-25 INH (09:26)
[2018-08-10] MEDS: ASPIRIN 81 MG TAB PO (09:27)
[2018-08-10] MEDS: BUPROPION (XL) 150 MG TAB PO (09:27)
[2018-08-10] MEDS: ENOXAPARIN 40 MG/0.4 ML SYG SC (09:30)
[2018-08-10] MEDS: INSULIN ASPART [NOVOLOG] 3 ML PEN SC ×5 (09:31→21:50)
[2018-08-10 10:32] LABS: HAAIG REFLEX REFLEX FILED
[2018-08-10] MEDS: ACCU-CHEK XX ×3 (10:45→21:31)
[2018-08-10 10:48] LABS: CREATINE KINASE 93 IU/L (23-200)
[2018-08-10] MEDS: MAGNESIUM SULFATE 3 GM in DEXTROSE 5% 100 ML IVPB (10:54)
[2018-08-10] MEDS: NICOTINE (7 MG/24 HR) PATCH TRANSDERM (10:55)
[2018-08-10] MEDS: METHYLPREDNISOLONE 125 MG INJ IV ×2 (10:55→21:32)
[2018-08-10 10:56] LABS: B-TYPE NATRIURETIC PEPTIDE 24 PG/ML (0-125)
[2018-08-10 10:59] LABS: CK INDEX 0.9; CK-MB 0.84 ng/ml (0.0-2.4); TROPONIN-I < 0.012 ng/ml (0.000-0.120)
[2018-08-10] MEDS: NPH, HUMAN INSULIN ISOPHANE 3ML VIAL SC ×2 (11:07→21:51)
[2018-08-10 11:17] LABS: AADO2 Arterial 29.3 mmHg (7.0-24.0); Allen Test ACCEPTAB; Arterial Base Excess 0.5 mmol/L (-3.0-3); Arterial Blood Gas Oxygen Sat 90.7 mmHG (95.0-98.0); Arterial COHb 1.8 % (0.0-3.0); Arterial Fraction of Oxyhgb 88.9 % (93.0-99.0); Arterial HCO3 26.8 mmol/L (22.0-26.0); Arterial MetHb 0.2 % (0.0-1.5); Arterial pCO2 49.4 mmhg (35-45); MODE ROOM AIR; Site Right Radial
[2018-08-10 11:24] LABS: HEPATITIS B SURFACE ANTIGEN NEGATIVE (NEGATIVE)
[2018-08-10] MEDS: ARFORMOTEROL TARTRATE 15MCG/2 ML AMP NEB ×2 (11:35→21:00)
[2018-08-10 11:42] LABS: HEPATITIS B CORE ANTIBODY REACTIVE (NEGATIVE); HEPATITIS C VIRAL ANTIBODY NEGATIVE (NEGATIVE)
[2018-08-10] MEDS: REPAGLINIDE 1 MG TAB PO (12:09)
[2018-08-10] MEDS: ALBUTEROL/IPRATROPIUM (NEB) 3 ML AMP HHN ×2 (16:43→19:48)
[2018-08-10] MEDS: INSULIN GLARGINE [LANTus] (100 UNITS/ML) SYG SC (19:42)
[2018-08-10] MEDS: FAMOTIDINE 20 MG TAB PO (21:32)
[2018-08-10 23:51] LABS: BARBITURATES Negative (NEGATIVE); BENZODIAZEPINES Negative (NEGATIVE); CANNABINOIDS Negative (NEGATIVE); COCAINE Negative (NEGATIVE); OPIATES Positive (NEGATIVE)
[2018-08-11 00:04] LABS: AMPHETAMINE/METHAMPHETAMINE Positive (NEGATIVE)
[2018-08-11] MEDS: LORAZEPAM 2 MG INJ IV (00:10)
[2018-08-11 00:15] LABS: ADD UMIC YES; UR ASCORBIC ACID NEGATIVE (NEGATIVE); UR BILIRUBIN (Dip) NEGATIVE (NEGATIVE); UR BLOOD (Dip) NEGATIVE (NEGATIVE); UR CLARITY CLEAR (CLEAR); UR COLOR YELLOW (YELLOW); UR GLUCOSE (Dip) 3+ mg/dL (NEGATIVE); UR KETONES (Dip) NEGATIVE (NEGATIVE); UR LEUKOCYTE ESTERASE (Dip) NEGATIVE Leu/ul (NEGATIVE); UR NITRITE (Dip) NEGATIVE (NEGATIVE); UR RBC 0 /HPF (0-5); UR SPECIFIC GRAVITY (Dip) 1.036 (1.003-1.030); UR TOTAL PROTEIN (Dip) 1+ mg/dl (NEGATIVE); UR UROBILINOGEN (Dip) NEGATIVE (NEGATIVE); UR WBC 0 /HPF (0-5)
[2018-08-11] MEDS: ACCU-CHEK XX ×3 (02:50→14:27)
[2018-08-11 05:44] LABS: ADD MAN DIFF? NO
[2018-08-11 05:45] LABS: BASOPHILS % 0.1 % (0.0-2.0); HEMATOCRIT 42.7 % (37.0-47.0); HEMOGLOBIN 14.2 g/dl (12.0-16.0); LYMPHOCYTES # 1.1 10^3/ul (0.8-2.9); MEAN CORPUSCULAR HEMOGLOBIN 32.5 pg (29.0-33.0); MEAN CORPUSCULAR HGB CONC 33.3 g/dl (32.0-37.0); MEAN CORPUSCULAR VOLUME 97.7 fl (82.0-101.0); MONOCYTE # 0.6 10^3/ul (0.3-0.9); MONOCYTES % 4.5 % (0.0-11.0); NEUTROPHIL # 11.5 10^3/ul (1.6-7.5); NEUTROPHILS % 87.1 % (39.0-77.0); PLATELET COUNT 318 10^3/UL (140-415); RED BLOOD COUNT 4.37 10^6/ul (4.20-5.40); RED CELL DISTRIBUTION WIDTH 11.6 % (11.5-14.5)
[2018-08-11 05:45] LABS: WHITE BLOOD COUNT 13.2 10^3/ul (4.8-10.8)
[2018-08-11 06:25] LABS: PHOSPHORUS 3.8 mg/dl (2.5-4.9)
[2018-08-11 06:25] LABS: MAGNESIUM 2.1 mg/dl (1.7-2.5)
[2018-08-11 06:35] LABS: ALANINE AMINOTRANSFERASE 111 IU/L (13-69); ALBUMIN 4.3 g/dl (3.3-4.9); ALBUMIN/GLOBULIN RATIO 1.07; ALKALINE PHOSPHATASE 88 IU/L (42-121); AMYLASE 66 U/L (11-123); ANION GAP 13 (5-13); ASPARTATE AMINO TRANSFERASE 58 IU/L (15-46); BILIRUBIN,INDIRECT 0.4 mg/dl (0-1.1); BILIRUBIN,TOTAL 0.4 mg/dl (0.2-1.3); BLOOD UREA NITROGEN 18 mg/dl (7-20); CARBON DIOXIDE 27 mmol/L (21-31); CHLORIDE 100 mmol/L (97-110); CREATININE 0.57 mg/dl (0.44-1.00); Estimated GFR > 60 mL/min (>60); GLUCOSE 273 mg/dl (70-220); LIPASE 85 U/L (23-300); POTASSIUM 4.4 mmol/L (3.5-5.1); SODIUM 140 mmol/L (135-144); TOTAL PROTEIN 8.3 g/dl (6.1-8.1)
[2018-08-11 06:37] LABS: TROPONIN-I < 0.012 ng/ml (0.000-0.120)
[2018-08-11] MEDS: INSULIN ASPART [NOVOLOG] 3 ML PEN SC ×6 (08:11→17:26)
[2018-08-11] MEDS: ALBUTEROL/IPRATROPIUM (NEB) 3 ML AMP HHN ×4 (08:23→17:29)
[2018-08-11] MEDS: ARFORMOTEROL TARTRATE 15MCG/2 ML AMP NEB (08:24)
[2018-08-11] MEDS: ASPIRIN 81 MG TAB PO (09:19)
[2018-08-11] MEDS: BUPROPION (XL) 150 MG TAB PO (09:19)
[2018-08-11] MEDS: FAMOTIDINE 20 MG TAB PO (09:19)
[2018-08-11] MEDS: ENOXAPARIN 40 MG/0.4 ML SYG SC (09:22)
[2018-08-11] MEDS: NICOTINE (7 MG/24 HR) PATCH TRANSDERM (09:24)
[2018-08-11] MEDS: METHYLPREDNISOLONE 125 MG INJ IV (10:20)
[2018-08-11] MEDS: NPH, HUMAN INSULIN ISOPHANE 3ML VIAL SC (10:28)
[2018-08-11] MEDS: morphine 2 MG INJ IV (14:29)
[2018-08-11] MEDS ORDERED: IBUPROFEN 600 MG TAB PO (18:30)
[2018-08-11] MEDS ORDERED: METHYLPREDNISOLONE 4 MG TAB PO (19:00)
[2018-08-11] MEDS ORDERED: METHYLPREDNISOLONE (MEDROL) DOSE PACK PO (19:00)
[2018-08-12] MEDS ORDERED: METHYLPREDNISOLONE 4 MG TAB PO ×4 (07:00→21:00)
[2018-08-12] MEDS ORDERED: ASPIRIN (EC) 81 MG TAB PO (09:00)
[2018-08-13] MEDS ORDERED: METHYLPREDNISOLONE 4 MG TAB PO (21:00)
== END 2018-08-11 19:23 | disposition home or self-care (01) ==
LOC: 6WM 08-10 00:02 → E/R 21:05
DX: R07.89 Other chest pain (principal); R09.1 Pleurisy; E03.9 Hypothyroidism, unspecified; J44.1 Chronic obstructive pulmonary disease with (acute) exacerbation; J96.10 Chronic respiratory failure, unspecified whether with hypoxia or hypercapnia; E88.81 Metabolic syndrome and other insulin resistance; E11.9 Type 2 diabetes mellitus without complications; I10 Essential (primary) hypertension; E78.5 Hyperlipidemia, unspecified; K76.0 Fatty (change of) liver, not elsewhere classified; N20.0 Calculus of kidney; N83.201 Unspecified ovarian cyst, right side; R62.7 Adult failure to thrive; Z59.0 Homelessness; Z72.0 Tobacco use; I11.0 Hypertensive heart disease with heart failure; I50.30 Unspecified diastolic (congestive) heart failure; E66.9 Obesity, unspecified; Z68.34 Body mass index [BMI] 34.0-34.9, adult
CPT/HCPCS: 36415; 36600; 71045; 71275; 74176; 80048; 80053; 80061; 80307; 81001; 82150; 82550; 82553; 82803; 82962; 83036; 83690; 83735; 83880; 84100; 84443; 84484; 85025; 85378; 86704; 86709; 86803; 87081; 87086; 87340; 93005; 93306; 93970; 94640; 94664; 96374; 96375; 99285-25; G0378